=== PATIENT | male | born 1985 | race Caucasian/White ===

== ENCOUNTER 2021-06-29 13:15 | Emergency (ER) | payer OTHER ==
[~2021-06-29] VITALS: Ht 180.3 cm; Wt 94.3 kg
[2021-06-29 13:21] VITALS: BP 152/87
[2021-06-29] MEDS ORDERED: KETOROLAC 30 MG/ML VIAL IM ONE (13:35)
[2021-06-29] MEDS ORDERED: KETOROLAC 30 MG/ML VIAL ONE (14:38)
[2021-06-29 14:41] VITALS: BP 152/87
[2021-06-29] MEDS ORDERED: LIDO1ADH47 TP (14:43)
[2021-06-29] MEDS ORDERED: NAPR-54 PO (14:43)
[2021-06-29] MEDS ORDERED: CYCL-711 PO (14:43)
--- NOTE | 2021-06-29 15:00 | NUR ---
Patient discharged with v/s stable. Written and verbal after care instructions given and explained. Patient alert, oriented and verbalized understanding of instructions. Ambulatory with steady gait. All questions addressed prior to discharge. ID band removed. Patient advised to follow up with PMD. Rx of CYCLOBENZAPRINE HCI,LIDOCAINE, NAPROXEN given. . Opportunity to ask questions provided and answered.
== END 2021-06-29 15:08 | disposition home or self-care (01) ==
LOC: MED 13:15
DX: S39.012A Strain of muscle, fascia and tendon of lower back, initial encounter (principal); V49.3XXA Car occupant (driver) (passenger) injured in unspecified nontraffic accident, initial encounter; Y93.89 Activity, other specified; Y92.89 Other specified places as the place of occurrence of the external cause; Y99.8 Other external cause status
CPT/HCPCS: 72050; 72072; 72110; 96372; 99284; J1885